=== PATIENT | female | born 1980 | race Caucasian/White ===

== ENCOUNTER 2020-03-26 19:57 | Emergency (ER) | payer OTHER, SELFPAY ==
--- NOTE | ~2020-03-26 | CT_ITS ---
EXAMINATION: CT abdomen pelvis w con DATE: 03/26/2020 22:01 INDICATION: Epigastric pain TECHNIQUE: Computed tomography (CT) of the abdomen and pelvis was performed with 100 cc Omnipaque 350 intravenous contrast. The dose-length product was 246.83 mGy-cm. Automated exposure control and iter ative reconstruction technique were employed. COMPARISON: None. FINDINGS: Lung bases are unremarkable. No significant pleural or pericardial effusion. There are escobar st implants. Heart size normal. No significant pleural or pericardial effusion. There is mild thickening of the gastric wall which may be due to underdistention or gastritis. Gallbl adder is mildly distended. No secondary findings to suggest cholecystitis. The liver, spleen, pancrea s, adrenal glands and kidneys are unremarkable. No significant vascular abnormality. No lymphadenopat hy. Moderate free fluid in the pelvis. Large amount of retained fecal material in the colon. Retrover amada uterus. No acute osseous abnormality. IMPRESSION: 1. Mild thickening of the gastric wall which may be due to underdistention or gastritis. 2: Moderate free fluid in the pelvis, nonspecific. Reviewed, dictated and finalized at location A. IMPRESSION: 1. Mild thickening of the gastric wall which may be due to underdistention or g astritis. 2: Moderate free fluid in the pelvis, nonspecific.
[2020-03-26 20:04] VITALS: BP 132/77; PULSE 94; RESP 19; TEMP 36.4; O2SAT 98
[2020-03-26 20:44] LABS: Basophils Percent Auto 0.3 % (0.2-1.2); Eosinophils Absolute Auto 0.1 K/mm3 (0-0.3); Eosinophils Percent Auto 0.6 % (0-4.4); Hematocrit 42.4 % (37.0-47.0); Hemoglobin 14.3 g/dL (12.0-15.0); Immature Granulocyte Absolute 0.03 K/mm3 (0.00-0.031); Immature Granulocyte Percent A 0.3 % (0-0.5); Lymphocytes Absolute Auto 2.41 K/mm3 (0.9-3.2); Mean Corpuscular HGB Conc 33.7 g/dl (32-36); Mean Corpuscular Volume 91.8 fl (80-100); Mean Platelet Volume 10.5 fl (7.4-10.4); Monocytes Absolute Auto 0.6 K/mm3 (0.1-0.6); Monocytes Percent Auto 5.9 % (2.6-8.5); Neutrophils Absolute Auto 6.2 K/mm3 (1.3-6.7); Neutrophils Percent Auto 66.9 % (45.5-73.1); Platelet Count Result 264 k/mm3 (150-375); Red Blood Count 4.62 M/mm3 (4.2-5.4); Red Cell Distribution Width 12.3 % (11.5-14.5); White Blood Count 9.3 K/mm3 (4.5-10.0)
[2020-03-26 20:56] LABS: Alanine Aminotransferase 11 U/L (4-35); Albumin Level 4.1 g/dL (3.5-5.1); Alkaline Phosphatase 68 U/L (38-126); Anion Gap 8 mmol/L (8-16); Aspartate Amino Transferase 21 U/L (14-36); Bilirubin,Total 0.5 mg/dL (0.2-1.3); Blood Urea Nitrogen 16 mg/dL (7-17); Carbon Dioxide 24 mmol/L (22-30); Chloride 101 mmol/L (98-107); Estimated Glomerular Filt Rate > 60; Glucose 93 mg/dL (65-105); Lipase 111 U/L (23-300); Potassium 4.2 mmol/L (3.4-5.0); Sodium 133 mmol/L (137-145)
[2020-03-26 21:09] LABS: Add Urine Microscopic? YES; Appearance Urine Cloudy (Clear); Bacteria Urine Trace /hpf; Bilirubin Urine Negative (Negative); Blood Urine Negative (Negative); Color Urine Yellow (Yellow); Glucose Urine UA Negative (Negative); Ketones Urine Negative (Negative); Leukocyte Esterase Ur 1+ LEU/UL (Negative); Mucus Urine Rare /lpf; Nitrate Urine Negative (Negative); Protein Urine Negative (Negative); Specific Grav Ur 1.019 (1.001-1.035); Squamous Epithelial Cell Urine Many /hpf (Few); Urobilinogen Urine Negative mg/dL (<2.0)
[2020-03-26] MEDS: MORPHINE SULFATE 4 MG/ML INJ IV PUSH (21:19)
--- NOTE | 2020-03-26 21:41 | ED.ABDPAIN ---
HPI - Abdominal Pain General Chief Complaint: Abdominal Pain Stated Complaint: abd pain Time Seen by Provider: 03/26/20 20:07 History of Present Illness HPI narrative: Patient is a 39-year-old female who presents ER with epigastric pain ongoing for last 5 days. Radiates into her back. Mild nausea but no vomiting. No diarrhea. Patient also reports that she is diffusely cramping. No previous abdominal surgeries. Spoke with her PCP who ordered an outpatient ultrasound but patient has not been scheduled. Pain persists and seems to be spreading so she went to be evaluated further. Pain is not associated with eating or drinking. Cannot identify an aggravating factor. Related Data Home Medications Medication Instructions Recorded Confirmed dextroamphetamine-amphetamine 15 mg PO DAILY 03/26/20 dextroamphetamine-amphetamine 15 mg PO DAILY 03/26/20 [Adderall XR] drospirenone-ethinyl estradiol tablet PO DAILY 03/26/20 [Mary] fluoxetine 40 mg PO DAILY 03/26/20 lisinopril 10 mg PO DAILY 03/26/20 Allergies Allergy/AdvReac Type Severity Reaction Status Date / Time Penicillins Allergy Intermediate Rash Verified 03/26/20 21:19 Review of Systems Review of Systems: All systems reviewed & are unremarkable except as noted in HPI and below Constitutional: Constitutional: Denies chills, Denies fever(s) and Denies weakness ENT: Denies nasal congestion and Denies sore throat Cardiovascular: Cardiovascular: Denies chest pain Gastrointestinal: Gastrointestinal: Reports abdominal pain, Reports bloating, Denies diarrhea, Reports nausea and Denies vomiting Genitourinary: Genitourinary: Denies nocturia, Denies dysuria and Denies flank pain PMFSH Past Medical History Medical History (Updated 03/26/20 @ 22:39 by Dereje Maldonado MD) Healthy female adult Surgical History Surgical History (Updated 03/26/20 @ 21:43 by Dereje Maldonado MD) H/O bilateral mastectomy Social History Social History (Updated 03/26/20 @ 21:43 by Dereje Maldonado MD) Smoking status: Never smoker Gender identity (if verbalized by the patient): Female Exam Narrative: Exam Narrative: GENERAL: Well-appearing, well-nourished, and in no acute distress. HEAD: Normocephalic, atraumatic. ENT: Mucous membranes moist. CHEST: Clear to auscultation. No respiratory distress. HEART: Regular rate and rhythm. Normal peripheral pulses. ABDOMEN: Soft, moderately tender to the epigastrium right upper quadrant without guarding, nondistended, normal active bowel sounds. EXTREMITIES: Normal range of motion. No edema. SKIN: Warm, dry, no rash. NEURO: Alert and oriented x3. Course Course Emergency Course: Informed of results. Discharged with PPI. Vital Signs Vital signs: Vital Signs Temperature 97.6 F 03/26/20 20:04 Pulse Rate 94 03/26/20 20:04 Respiratory Rate 19 03/26/20 20:04 Blood Pressure 132/77 03/26/20 20:04 Pulse Oximetry 98 03/26/20 20:04 Temperature 97.6 F 03/26/20 20:04 Pulse Rate 94 03/26/20 20:04 Respiratory Rate 19 03/26/20 20:04 Blood Pressure 132/77 03/26/20 20:04 Pulse Oximetry 98 03/26/20 20:04 MDM - Abdominal Pain Lab Data Result diagrams: 03/26/20 20:40 03/26/20 20:40 Labs: Lab Results 03/26/20 03/26/20 03/26/20 Range/Units 20:40 20:40 20:56 WBC 9.3 (4.5-10.0) K/mm3 RBC 4.62 (4.2-5.4) M/mm3 Hgb 14.3 (12.0-15.0) g/dL Hct 42.4 (37.0-47.0) % MCV 91.8 (80-100) fl MCH 31.0 (26-34) pg MCHC 33.7 (32-36) g/dl RDW 12.3 (11.5-14.5) % Plt Count 264 (150-375) k/mm3 MPV 10.5 H (7.4-10.4) fl Immature Gran % (Auto) 0.3 (0-0.5) % Neut % (Auto) 66.9 (45.5-73.1) % Lymph % (Auto) 26.0 (18.3-44.2) % [place] % (Auto) 5.9 (2.6-8.5) % Eos % (Auto) 0.6 (0-4.4) % Baso % (Auto) 0.3 (0.2-1.2) % Lymph # (Auto) 2.41 (0.9-3.2) K/mm3 [place] # (Auto) 0.6 (0.1-0.6) K/mm3 Eos # (
[2020-03-26 22:54] VITALS: BP 115/75; PULSE 78; RESP 16; O2SAT 97
== END 2020-03-26 23:11 | disposition home or self-care (01) ==
PROVIDERS: Emergency Provider Emergency Medicine
DX: K29.70 Gastritis, unspecified, without bleeding (principal); Z90.13 Acquired absence of bilateral breasts and nipples
CPT/HCPCS: 36415; 74177; 80053; 81001; 81025; 83690; 85025; 96374; 99284; J2270; Q9967

== ENCOUNTER 2021-07-06 15:49 | Emergency (ER) | payer OTHER, SELFPAY ==
[2021-07-06 16:02] VITALS: BP 161/97; PULSE 87; RESP 20; TEMP 36.6; O2SAT 100
[2021-07-06 16:03] VITALS: BP 161/97; PULSE 87; RESP 20; TEMP 36.6; O2SAT 100
--- NOTE | 2021-07-06 16:59 | ED.URI ---
HPI - URI/Sore Throat General Chief Complaint: Upper Respiratory Infection Stated Complaint: cough,hoarse Source: patient and RN notes reviewed Limitations: no limitations History of Present Illness HPI Narrative: The vaccinated patient, a non-smoker/occasional drinker Whatever, presents recheck of 1/2-week history of chiefly cough, hoarseness associated scratchy sore throat and definite improving froggy voice . She was seen over the weekend and reports she had a preceding noncontributory x-ray and was placed on a Z-Juvencio. No fever, wheezing; no loss of taste/smell, chest pain vomiting/diarrhea, or S OB; cough is worse at night when supine/sleeping. Related Data Home Medications Medication Instructions Recorded Confirmed dextroamphetamine-amphetamine 15 mg PO DAILY 03/26/20 07/06/21 drospirenone-ethinyl estradiol 1 tablet PO DAILY 03/26/20 07/06/21 [Mary] fluoxetine 40 mg PO DAILY 03/26/20 07/06/21 lisinopril 10 mg PO DAILY 03/26/20 07/06/21 Allergies Allergy/AdvReac Type Severity Reaction Status Date / Time Penicillins Allergy Intermediate Rash Verified 07/06/21 16:02 Review of Systems Review of Systems: General/Constitutional: No weight loss,fever Eyes: N0: Redness,discharge Ears/Nose/Throat: No: Epistaxis,ear discharge Respiratory: Denies: Hemoptysis Gastrointestinal: No Vomiting, Bleeding-rectal Skin: No Lumps, eruption Neurologic: No Focal Weakness,Sz Hematologic: Denies: Petechiae/Purpura Psychiatric: No: Suicida ideationl All Other Systems: Reviewed and Negative PMFSH Past Medical History Medical History (Updated 07/07/21 @ 17:38 by Germán Pedraza MD) Healthy female adult Surgical History Surgical History (Updated 03/26/20 @ 21:43 by Dereje Maldonado MD) H/O bilateral mastectomy Social History Social History (Updated 03/26/20 @ 21:43 by Dereje Maldonaod MD) Smoking status: Never smoker Gender identity (if verbalized by the patient): Female Comments At time of signature, agree with nursing past medical, surgical, social and family history. There is no relevant family history pertinent to the presenting complaint Exam Narrative: General Appearance: Well appearing, Well nourished EYE: PERRLA, Conjunctiva clear Ears: Auditory canal normal, TM normal Nose: Rhinorrhea, Mucousal erythema Mouth/Throat: MM moist, Uvula midline, Pharyngeal erythema Neck: Supple, No adenopathy Respiratory: No respiratory distress, Breath sounds equal, Clear to auscultation Cardiovascular: RRR, No JVD Musculoskeletal: Non tender, Normal strength Skin: Warm, Dry Neurological: A&O x3, CN II-XII intact Psychiatric: Normal mood, Normal affect Course Vital Signs Vital signs: Vital Signs Temperature 97.9 F 07/06/21 16:02 Pulse Rate 87 07/06/21 16:02 Respiratory Rate 20 07/06/21 16:02 Blood Pressure 161/97 H 07/06/21 16:02 Pulse Oximetry 100 07/06/21 16:02 Temperature 97.9 F 07/06/21 16:03 Pulse Rate 87 07/06/21 16:03 Respiratory Rate 20 07/06/21 16:03 Blood Pressure 161/97 H 07/06/21 16:03 Pulse Oximetry 100 07/06/21 16:03 Discharge Plan Discharge Clinical Impression: Voice hoarseness Patient Disposition: Home, Self-Care Condition: Stable Instructions: Acute Cough (ED) Prescriptions: New prednisone 20 mg tablet 60 mg PO DAILY Qty: 9 RF: 0 benzonatate 100 mg capsule 100 mg PO TID PRN (Reason: cough) Qty: 20 RF: 2 codeine-guaifenesin 10-100 mg/5 mL liquid 7.5 ml PO BID PRN (Reason: cough) Qty: 118 RF: 0 No Action fluoxetine 40 mg capsule 40 mg PO DAILY RF: 0 lisinopril 10 mg tablet 10 mg PO DAILY RF: 0 dextroamphetamine-amphetamine 15 mg tablet 15 mg PO DAILY RF: 0 drospirenone-ethinyl estradiol [Mary] 3-0.03 mg tablet 1 tablet PO DAILY RF: 0 pantoprazole 40 mg tablet,delayed release (DR/EC) 40 mg PO BID 14 Days Qty: 28 RF: 0 Follow-up/Referrals: Reva De Leon,
== END 2021-07-06 17:07 | disposition home or self-care (01) ==
PROVIDERS: Emergency Provider Emergency Medicine
DX: R49.0 Dysphonia (principal); Z90.13 Acquired absence of bilateral breasts and nipples; I10 Essential (primary) hypertension; K21.9 Gastro-esophageal reflux disease without esophagitis
CPT/HCPCS: 99213; G0463

== ENCOUNTER 2021-08-16 11:34 | Emergency (ER) | payer OTHER, SELFPAY ==
--- NOTE | ~2021-08-16 | CT_ITS ---
EXAMINATION:CT diagnostic chest w con DATE: 08/16/2021 15:45 INDICATION: Chronic cough. TECHNIQUE: Computed tomography (CT) of the chest was performed with 75 mL Omnipaque 350 intravenous c ontrast. Automated exposure control and iterative reconstruction technique were employed. The dose-le ngth product (DLP) was 129.75 mGy-cm. COMPARISON: CT abdomen and pelvis 03/26/2020, chest single view 08/16/21 FINDINGS: The lungs demonstrate mild atelectasis. Again seen is a 4 mm nodule in right middle lobe, l ikely benign. There is a 4 mm nodule in left lower lobe, likely benign. There is a 3 mm nodule in rig ht lower lobe, likely benign. No pleural effusion. Breast implants are noted. The heart size is jared l. No pericardial effusion. There is a small sliding hiatal hernia. There is mild thoracic spondylosi s. IMPRESSION: 1. Small pulmonary nodules, likely benign. Reviewed, dictated and finalized at location A. STERED NURSE CARDIAC
--- NOTE | ~2021-08-16 | XR_ITS ---
EXAMINATION: XR chest 1V portable EXAM DATE: 08/16/2021 14:12 INDICATION: Chest pain, sob, cough. TECHNIQUE: Portable AP frontal chest x-ray was obtained. There is no prior study for comparison. FINDINGS: The lungs are clear. There are no pleural effusions. Cardiac silhouette is prominent but magnified on this AP technique. There is no pneumothorax suspected. The bones and soft tissues are unremarkable. IMPRESSION: No acute cardiopulmonary findings. Reviewed, dictated and finalized at location G. UNTS RECEIVABLE REPRESENTATIVE
[2021-08-16 12:11] VITALS: BP 148/91; PULSE 130; RESP 18; TEMP 36.7; O2SAT 100
[2021-08-16 13:59] VITALS: BP 160/98; PULSE 110; RESP 20; TEMP 36.7; O2SAT 98
--- NOTE | 2021-08-16 14:01 | ECG_ITS ---
Measurements Intervals [place] Rate: 123 P: 62 OR: 121 QRS: 30 QRSD: 78 T: 33 QT: 277 QTc: 396 Interpretive Statements SINUS TACHYCARDIA BORDERLINE T WAVE ABNORMALITY- INFERIOR LEADS BASELINE WANDER- V1, V3-V5 ABNORMAL ECG Electronically Signed On 08-16-2021 16:15:20 COMIC ILLUSTRATOR by Christophe Champion D.O.
[2021-08-16 14:35] LABS: Alanine Aminotransferase 24 U/L (4-35); Albumin Level 3.9 g/dL (3.5-5.1); Alkaline Phosphatase 102 U/L (38-126); Anion Gap 9 mmol/L (8-16); Aspartate Amino Transferase 33 U/L (14-36); Bilirubin,Total 0.4 mg/dL (0.2-1.3); Blood Urea Nitrogen 11 mg/dL (7-17); Calcium 9.3 mg/dL (8.4-10.2); Carbon Dioxide 27 mmol/L (22-30); Chloride 98 mmol/L (98-107); Estimated CRCL calculation 67 ml/min; Estimated Glomerular Filt Rate > 60; Glucose 100 mg/dL (65-110); Potassium 3.3 mmol/L (3.4-5.0); Sodium 134 mmol/L (137-145)
[2021-08-16 14:41] LABS: Basophils Percent Auto 0.3 % (0.2-1.2); D Dimer 0.45 ug/mL (<0.48); Eosinophils Percent Auto 0.3 % (0-4.4); Hematocrit 38.7 % (37.0-47.0); Hemoglobin 12.8 g/dL (12.0-15.0); Immature Granulocyte Absolute 0.04 K/mm3 (0.00-0.031); Immature Granulocyte Percent A 0.7 % (0-0.5); Lymphocytes Absolute Auto 0.62 K/mm3 (0.9-3.2); Lymphocytes Percent Auto 10.8 % (18.3-44.2); Mean Corpuscular HGB Conc 33.1 g/dl (32-36); Mean Corpuscular Volume 90.6 fl (80-100); Mean Platelet Volume 9.8 fl (7.4-10.4); Monocytes Absolute Auto 0.5 K/mm3 (0.1-0.6); Monocytes Percent Auto 8.7 % (2.6-8.5); Neutrophils Absolute Auto 4.6 K/mm3 (1.3-6.7); Neutrophils Percent Auto 79.2 % (45.5-73.1); Platelet Count Result 229 k/mm3 (150-375); Red Blood Count 4.27 M/mm3 (4.2-5.4); Red Cell Distribution Width 12.9 % (11.5-14.5); White Blood Count 5.8 K/mm3 (4.5-10.0)
[2021-08-16 14:47] LABS: Troponin I < 0.012 ng/mL (0.000-0.034)
[2021-08-16] MEDS: POTASSIUM CHLORIDE 20 MEQ TABLET PO ×2 (14:50→15:03)
--- NOTE | 2021-08-16 15:20 | ED.GENADULT ---
HPI - General Adult General Chief complaint: Upper Respiratory Infection Stated complaint: coughing Time Seen by Provider: 08/16/21 14:00 Source: patient and RN notes reviewed History of Present Illness HPI narrative: Patient is a 41 y/o female complaining of severe, chronic cough since March of last year. She states that she was treated with steroids, cough medicine intermittently which did not help. Her cough is mostly dry. She has no fever or chest pain. She has been vaccinated against COVID. She has been on Lisinopril for years. She states that she stopped it briefly and her cough did not stop. Related Data Home Medications Medication Instructions Recorded Confirmed drospirenone-ethinyl estradiol 1 tablet PO DAILY 03/26/20 07/06/21 [Mary] fluoxetine 40 mg PO DAILY 03/26/20 07/06/21 lisinopril 10 mg PO DAILY 03/26/20 07/06/21 dextroamphetamine-amphetamine 30 mg PO DAILY 08/16/21 08/16/21 [Adderall XR] Allergies Allergy/AdvReac Type Severity Reaction Status Date / Time Penicillins Allergy Intermediate Rash Verified 08/16/21 14:04 Review of Systems Constitutional: Constitutional: Denies chills, Denies fever(s), Denies headache(s) and Denies weakness Eyes: Eyes: Denies blurry vision ENT: Denies headache(s) and Denies neck pain Cardiovascular: Cardiovascular: Denies chest pain and Reports dyspnea Respiratory: Respiratory: Reports cough and Reports dyspnea Gastrointestinal: Gastrointestinal: Denies abdominal pain, Denies diarrhea, Denies nausea and Denies vomiting Genitourinary: Genitourinary: Denies hematuria and Denies dysuria Musculoskeletal: Musculoskeletal: Denies back pain and Denies neck pain Neurologic: Denies headache(s) and Denies weakness [facility] Past Medical History Medical History Healthy female adult Surgical History Surgical History H/O bilateral mastectomy Social History Social History Smoking status: Never smoker Gender identity (if verbalized by the patient): Female Exam Const: General: no acute distress and well developed Orientation/consciousness: oriented to person, oriented to place, oriented to time and patient oriented x3 HENMT: Head: normocephalic Ears: external ears normal General nose exam: Normal external nose present Eyes: General: appearance normal, both eyes and all related structures Conjunctivae: conjunctivae normal Neck: Neck: normal visual inspection and full ROM Chest: Chest palpation & inspection: normal inspection of the chest and no tenderness Resp: Effort & Inspection: normal respiratory effort Auscultation: clear to auscultation bilaterally Cardio: Rate: tachycardic Rhythm: regular rhythm GI: GI Palp: No abdominal tenderness and Yes Soft to palpation Skin: General skin exam: normal color and turgor normal Neuro: General: oriented to person, oriented to place, oriented to time and patient oriented x3 Cognition (Neuro): normal cognition Extrem: General: normal to inspection, full ROM and no pedal edema Psych: Appearance: grossly normal Mental Status: mental status grossly normal Affect: Anxious affect present Course Reevaluation(s) Reevaluation #1: Discussed with patient about labs, xray and CT results including CT finding of pulmonary nodule. Instructed patient to follow with assistant curator. Date: 08/16/21 Time: 16:20 Vital Signs Vital signs: Vital Signs Temperature 36.7 C 08/16/21 12:11 Pulse Rate 130 H 08/16/21 12:11 Respiratory Rate 18 08/16/21 12:11 Blood Pressure 148/91 H 08/16/21 12:11 Pulse Oximetry 100 08/16/21 12:11 Temperature 36.7 C 08/16/21 13:59 Pulse Rate 110 H 08/16/21 13:59 Respiratory Rate 20 08/16/21 13:59 Blood Pressure 160/98 H 08/16/21 13:59 Pulse Oximetry 98 08/16/21 13:59 Medical Decision Making Vital Signs
[2021-08-16] MEDS: guaiFENesin/DEXTROMETHORPHAN 10 ML UDC PO (15:46)
[2021-08-16] MEDS: ACETAMINOPHEN 325 MG TABLET 650 MG PO (15:46)
[2021-08-16 16:08] LABS: Add Urine Microscopic? YES; Appearance Urine Clear (Clear); Bilirubin Urine Negative (Negative); Blood Urine Negative (Negative); Color Urine Yellow (Yellow); Glucose Urine UA Negative (Negative); Ketones Urine 1+ mg/dL (Negative); Leukocyte Esterase Ur Negative LEU/UL (Negative); Mucus Urine Heavy /lpf; Nitrate Urine Negative (Negative); Protein Urine Negative (Negative); RBC Urine 0-2 /hpf (0-2); Specific Grav Ur 1.024 (1.001-1.035); Squamous Epithelial Cell Urine Rare /hpf (Few); Urobilinogen Urine Negative mg/dL (<2.0); WBC Urine 0-3 /hpf
[2021-08-17 10:57] LABS: SARS-CoV-2 RNA PCR Positive
== END 2021-08-16 16:54 | disposition home or self-care (01) ==
PROVIDERS: Emergency Provider Emergency Medicine
DX: U07.1 COVID-19 (principal); R05.3 Chronic cough; I10 Essential (primary) hypertension; R91.8 Other nonspecific abnormal finding of lung field; Z90.13 Acquired absence of bilateral breasts and nipples; R00.0 Tachycardia, unspecified; R94.31 Abnormal electrocardiogram [ECG] [EKG]
CPT/HCPCS: 36415; 71045; 71260; 80053; 81001; 81025; 84484; 85025; 85380; 93005; 99284; A9270; C9803; Q9967; U0003; U0005

== ENCOUNTER 2021-11-29 16:05 | Emergency (ER) | payer OTHER, SELFPAY ==
--- NOTE | ~2021-11-29 | XR_ITS ---
EXAM: XR abdomen obstructive series HISTORY: upper abdominal pain COMPARISON: None available FINDINGS: Clear lung bases. Normal bowel gas pattern. No organomegaly. No abnormal abdominal calcifi cation. Regional bones and soft tissues normal for age. IMPRESSION: No obstruction or ileus. Reviewed, dictated and finalized at location K. IMPRESSION: No obstruction or ileus.
[2021-11-29 16:41] VITALS: BP 129/94; PULSE 89; RESP 18; TEMP 36.9; O2SAT 100
--- NOTE | 2021-11-29 17:33 | ED.URI ---
HPI - URI/Sore Throat General Chief Complaint: Back Pain/Injury Stated Complaint: Chest and Stomach Pain Time Seen by Provider: 11/29/21 17:33 Source: patient Mode of arrival: ambulatory Limitations: no limitations History of Present Illness HPI Narrative: 41-year-old female presents with complaint of upper abdominal pain that radiates into lower abdomen and around to the low back. Reports that she has had similar pain in the past and went to the ER and was told that the CT scanner was not available that evening. States that she did not want to go back to the ER for this reason. Was discharged home and states that pain eventually went away on its own. She has no other symptoms. No nausea vomiting. Last bowel movement was yesterday. She reports that she has not ate any new or aggravating foods. She has no urinary symptoms. No history of ovarian cyst. All systems reviewed and negative except as noted above. Related Data Home Medications Medication Instructions Recorded Confirmed fluoxetine 40 mg PO DAILY 03/26/20 11/29/21 lisinopril 10 mg PO DAILY 03/26/20 11/29/21 dextroamphetamine-amphetamine 30 mg PO DAILY 08/16/21 11/29/21 [Adderall XR] Allergies Allergy/AdvReac Type Severity Reaction Status Date / Time Penicillins Allergy Intermediate Rash Verified 11/29/21 17:40 Review of Systems Review of Systems: CONSTITUTIONAL: Denies fever, chills, or sweats. EYES: Denies visual changes, redness, or discharge. ENT: Denies rhinorrhea, congestion, sore throat, or otalgia. CARDIOVASCULAR: Denies chest pain, palpitations, or edema. RESPIRATORY: Denies cough or dyspnea. GASTROINTESTINAL: Reports abdominal pain radiating to low back. Denies nausea, vomiting, or diarrhea. GENITOURINARY: Denies dysuria or hematuria. SKIN: Denies rash or itching. MUSCULOSKELETAL: Denies back pain, joint pain, or myalgia. NEUROLOGIC: Denies headache, numbness, or weakness. PSYCHIATRIC: Denies anxiety or depression. All other systems reviewed are negative, except as documented in HPI. [facility] Past Medical History Medical History Healthy female adult Surgical History Surgical History H/O bilateral mastectomy Social History Social History Smoking status: Never smoker Gender identity (if verbalized by the patient): Female Comments At time of signature, agree with nursing past medical, surgical, social and family history. There is no relevant family history pertinent to the presenting complaint. Exam Narrative: GENERAL: This is a well-nourished, well-developed patient, in no apparent distress. HEAD: normocephalic, atraumatic. EYES: PERRL. Sclera clear/white. Vision is grossly intact. EARS: External ears normal NOSE: External nose normal NECK: Neck supple, non-tender without lymphadenopathy, masses or thyromegaly. CARDIOVASCULAR: Regular rate and rhythm without murmurs, gallops, or rubs. RESPIRATORY: Clear to auscultation. Breath sounds equal bilaterally. No wheezes, rales, or rhonchi. GASTROINTESTINAL: Abdomen soft, nondistended. Bowel sounds are active. No hepato-splenomegaly, or palpable masses. No guarding. Tenderness to right upper, epigastric and left upper quadrant on palpation. SKIN: warm, Dry, intact with no suspicious lesions or rash, good texture and turgor. NEURO: awake, alert, and oriented to person, place and time. There were no obvious focal neurologic abnormalities. EXTREMITIES: Normal range of motion to all extremities. BACK: Nontender without deformity. No CVA tenderness. Course Course Level of Care: Express Care Visit Vital Signs Vital signs: Vital Signs Temperature 36.9 C 11/29/21 16:41 Pulse Rate 89 11/29/21 16:41 Respiratory Rate 18 11/29/21 16:41 Blood Pressure 129/94 H 11/29/21 16:41 Pulse Oximetry 100 11/29/21 16:41 Temperature
== END 2021-11-29 19:14 | disposition home or self-care (01) ==
PROVIDERS: Emergency Provider Nurse Practitioner Family
DX: R14.1 Gas pain (principal)
CPT/HCPCS: 74019; 81003; 81025; 99213; G0463

== ENCOUNTER 2022-06-01 11:02 | Emergency (ER) | payer OTHER, SELFPAY ==
[2022-06-01 11:12] VITALS: BP 130/87; PULSE 99; RESP 18; TEMP 36.7; O2SAT 99
--- NOTE | 2022-06-01 11:24 | ED.SKABFB ---
HPI - Skin/Abscess/Foreign Bdy General Chief complaint: Skin/Abscess/Foreign Body Stated complaint: nail discoloration Time Seen by Provider: 06/01/22 11:25 Source: patient Mode of arrival: ambulatory Limitations: no limitations History of Present Illness HPI narrative: 42-year-old female presents with concern for nail fungus. noticed approximately 1 week ago after remote chronic nails. Has been using [id number] antifungal cream with no relief. Called her PCP today and not able to get her in for an appointment. All systems reviewed and negative except as noted above. Related Data Home Medications Medication Instructions Recorded Confirmed fluoxetine 40 mg capsule 40 mg PO DAILY 03/26/20 06/01/22 lisinopril 10 mg tablet 10 mg PO DAILY 03/26/20 06/01/22 dextroamphetamine-amphetamine ER 30 mg PO DAILY 08/16/21 06/01/22 30 mg 24hr capsule,extend release (Adderall XR) Allergies Allergy/AdvReac Type Severity Reaction Status Date / Time Penicillins Allergy Intermediate Rash Verified 06/01/22 11:19 Review of Systems Review of Systems: CONSTITUTIONAL: Denies fever, chills, or sweats. EYES: Denies visual changes, redness, or discharge. ENT: Denies rhinorrhea, congestion, sore throat, or otalgia. CARDIOVASCULAR: Denies chest pain, palpitations, or edema. RESPIRATORY: Denies cough or dyspnea. GASTROINTESTINAL: Denies abdominal pain, nausea, vomiting, or diarrhea. GENITOURINARY: Denies dysuria or hematuria. SKIN: Denies rash or itching. Reports fingernail fungus. MUSCULOSKELETAL: Denies back pain, joint pain, or myalgia. NEUROLOGIC: Denies headache, numbness, or weakness. PSYCHIATRIC: Denies anxiety or depression. All other systems reviewed are negative, except as documented in HPI. [facility] Past Medical History Medical History Healthy female adult Surgical History Surgical History H/O bilateral mastectomy Social History Social History Smoking status: Never smoker Gender identity (if verbalized by the patient): Female Comments At time of signature, agree with nursing past medical, surgical, social and family history. There is no relevant family history pertinent to the presenting complaint. Exam Narrative: GENERAL: This is a well-nourished, well-developed patient, in no apparent distress. HEAD: normocephalic, atraumatic. EYES: PERRL. Sclera clear/white. Vision is grossly intact. EARS: External ears normal NOSE: External nose normal NECK: Neck supple, non-tender without lymphadenopathy, masses or thyromegaly. CARDIOVASCULAR: Regular rate and rhythm without murmurs, gallops, or rubs. RESPIRATORY: Clear to auscultation. Breath sounds equal bilaterally. No wheezes, rales, or rhonchi. SKIN: warm, Dry, intact with no suspicious lesions or rash, good texture and turgor. yellowish discoloration to nails with some thickening and some peeling. NEURO: awake, alert, and oriented to person, place and time. There were no obvious focal neurologic abnormalities. EXTREMITIES: No joint tenderness, effusion, or edema noted. Course Course Level of Care: Express Care Visit Vital Signs Vital signs: Vital Signs Temperature 36.7 C 06/01/22 11:12 Pulse Rate 99 06/01/22 11:12 Respiratory Rate 18 06/01/22 11:12 Blood Pressure 130/87 06/01/22 11:12 Pulse Oximetry 99 06/01/22 11:12 Oxygen Delivery Room Air 06/01/22 11:12 Temperature 36.7 C 06/01/22 11:12 Pulse Rate 99 06/01/22 11:12 Respiratory Rate 18 06/01/22 11:12 Blood Pressure 130/87 06/01/22 11:12 Pulse Oximetry 99
== END 2022-06-01 11:41 | disposition home or self-care (01) ==
PROVIDERS: Emergency Provider Nurse Practitioner Family
DX: B35.1 Tinea unguium (principal); I10 Essential (primary) hypertension; K21.9 Gastro-esophageal reflux disease without esophagitis; F90.9 Attention-deficit hyperactivity disorder, unspecified type
CPT/HCPCS: 99213; G0463

== ENCOUNTER 2023-02-03 12:15 | Emergency (ER) | payer OTHER, SELFPAY ==
[2023-02-03 12:27] VITALS: BP 138/95; PULSE 103; RESP 18; TEMP 36.2; O2SAT 100
--- NOTE | 2023-02-03 12:29 | PC.NURSE ---
PT REPORTS SHE LAST ATE PIZZA AROUND 1930 LAST NIGHT, SX ONSET OF 1999. PT REPORTS AN EPIGASTRIC BURNING PRESSURE THAT RADIATES UP TO HER THROAT. PT REPORTS SHE HAS HAD 5 EMESIS EPISODES TODAY. PT REPORTS CP, SOB AND VOMITING. PT REPORTS ONSET OF SX AFTER EATING AND SITTING AT HOME TALKING WITH DAUGHTER. PT IS EXTREMELY ANXIOUS UPON ARRIVAL, TEARFUL, HAVING SIG OTHER SPEAK FOR HER MOST OF THE TIME. PT DENIES ANY DIAPHORESIS, LIGHTHEADEDNESS, DIZZINESS, RADIATION TO ARM, NECK, OR JAW. PT REPORTS NO RELIEF WITH PEPCID, ZANTAC, OR OMEPRAZOLE.
--- NOTE | 2023-02-03 12:33 | ECG_ITS ---
Measurements Intervals [place] Rate: 81 P: 53 MD: 123 QRS: 37 QRSD: 94 T: 68 QT: 371 QTc: 431 Interpretive Statements SINUS RHYTHM INCOMPLETE RIGHT BUNDLE BRANCH BLOCK BASELINE ARTIFACT- II, III BORDERLINE ECG COMPARED TO ECG 08/16/2021 12:23:31 SINUS RHYTHM NOW PRESENT INCOMPLETE RIGHT BUNDLE-BRANCH BLOCK NOW PRESENT Electronically Signed On 02-03-2023 14:05:01 CDT by Christophe Champion D.O.
--- NOTE | 2023-02-03 12:46 | ED.CHESTPAIN ---
HPI - Chest Pain General Chief Complaint: Chest Pain Stated Complaint: chest pain Time Seen by Provider: 02/03/23 12:27 Source: patient, family (), RN notes reviewed and old records reviewed Mode of arrival: ambulatory Limitations: no limitations History of Present Illness HPI narrative: Patient presents today complaining of epigastric pain that radiates up the esophagus, shortness of breath, nausea and vomiting. Symptoms began after patient ate pizza last night around 8:00 p.m. patient has vomited 5 times since last night. Last episode was just prior to arrival. She has been able to keep down water in between these vomiting episodes. Shortness of breath gets worse upon exertion. She has tried Pepcid, Zantac, and omeprazole without much relief. Currently rates her pain 8/10. Patient also reports a history of GERD and severe anxiety. She used to have p.r.n. alprazolam, but has run out. She does take fluoxetine daily. states that patient and himself are going through a divorce currently and patient is starting a new job and has been very stressed recently. Related Data Home Medications Medication Instructions Recorded Confirmed fluoxetine 40 mg capsule 40 mg PO DAILY 03/26/20 02/03/23 lisinopril 10 mg tablet 10 mg PO DAILY 03/26/20 02/03/23 dextroamphetamine-amphetamine ER 30 mg PO DAILY 08/16/21 02/03/23 30 mg 24hr capsule,extend release (Adderall XR) Allergies Allergy/AdvReac Type Severity Reaction Status Date / Time Penicillins Allergy Intermediate Rash Verified 02/03/23 12:25 Review of Systems Review of Systems: CONSTITUTIONAL: Denies body aches, fever, chills, or sweats. EYES: Denies visual changes, redness, or discharge. ENT: Denies rhinorrhea, congestion, sore throat, or otalgia. CARDIOVASCULAR: Denies palpitations, or edema.+ chest pain RESPIRATORY: Denies cough. + shortness of breath GASTROINTESTINAL: Denies abdominal pain, or diarrhea.+ nausea and vomiting GENITOURINARY: Denies dysuria or hematuria. SKIN: Denies rash, itching, or wounds. MUSCULOSKELETAL: Denies back pain, joint pain, or myalgia. NEUROLOGIC: Denies headache, numbness, tingling, or weakness. PSYCH: Anxiety PMFSH Past Medical History Medical History (Updated 02/03/23 @ 13:08 by Lesly Bridges, [facility], ) Anxiety GERD (gastroesophageal reflux disease) Healthy female adult Surgical History Surgical History H/O bilateral mastectomy Social History Social History Smoking status: Never smoker Gender identity (if verbalized by the patient): Female Comments At time of signature, I have reviewed and agree with nursing past medical, surgical, social and family history unless otherwise noted. Please see nursing chart for further information. There is no relevant family history pertinent to the presenting complaint Exam Narrative: GENERAL: Well-appearing, well-nourished. Tearful, actively crying HEAD: Normocephalic, atraumatic. EYES: EOMI. PERRL. No redness or drainage. Conjunctivae normal. ENT: Mucous membranes pink and moist. Nares clear. NECK: Normal AROM. Supple. No lymphadenopathy. CHEST: No respiratory distress. Clear to auscultation. HEART: Regular rate and rhythm. No murmur appreciated. Normal peripheral pulses. ABDOMEN: Soft, nondistended, normal active bowel sounds. + mildly tender throughout, especially in the epigastrium. No rebound or guarding. EXTREMITIES: Normal range of motion. No edema. SKIN: Warm, dry, no rash. Capillary refill normal. Normal skin turgor. NEURO: No focal deficits. Alert and oriented x3. Gait steady. PSYCH: + anxious Course Course Level of Care: Express Care Visit Vital Signs Vital signs: Vital Signs Temperature 97.1 F L 02/03/23 12:27 Pulse Rate 103 H 02/03/23 12:27 Respiratory Rate 18 02/03/23 12:27 Blood Pressure 138/95 H 02/03/23 1
--- NOTE | 2023-02-03 12:49 | PC.NURSE ---
PT AND VOICE THEY ARE GOING THROUGH A DIVORCE, SHE IS STARTING A NEW JOB AND PT IS ANXIOUS ABOUT THE CHANGES. PT WAS ADVISED SHE MAY NEED TO GO TO THE HOSPITAL FOR FURTHER EVALUATION OF CHEST PAIN, PT AND DECLINE. PROVIDER IS AWARE OF PT DECISION. PT IS TEARFUL AND CRYING IN EXAM ROOM, REPORTS SHE CANNOT GET COMFORTABLE.
== END 2023-02-03 13:00 | disposition left against medical advice (07) ==
PROVIDERS: Emergency Provider Nurse Practitioner
DX: R06.02 Shortness of breath (principal); R07.9 Chest pain, unspecified; K21.9 Gastro-esophageal reflux disease without esophagitis; F41.9 Anxiety disorder, unspecified; Z90.13 Acquired absence of bilateral breasts and nipples
CPT/HCPCS: 93005; 99213; G0463